=== PATIENT | female | born 1985 | race Caucasian/White ===

== ENCOUNTER 2017-05-15 00:17 | Inpatient (IN) ==
[2017-05-15] MEDS ORDERED: PEPCID PO ONE (00:51)
[2017-05-15] MEDS ORDERED: PEPCID IV PRN (00:51)
[2017-05-15] MEDS ORDERED: ZOFRAN IV PRN (00:51)
[2017-05-15] MEDS ORDERED: REGLAN PO ONE (00:51)
[2017-05-15] MEDS ORDERED: AMBIEN PO PRN ×2 (00:51→16:31)
[2017-05-15] MEDS ORDERED: TYLENOL PO PRN (00:51)
[2017-05-15] MEDS ORDERED: STADOL IV PRN ×2 (00:51)
[2017-05-15] MEDS ORDERED: PEPCID PO PRN (00:51)
[2017-05-15] MEDS ORDERED: BRETHINE SUBQ PRN (00:51)
[2017-05-15] MEDS ORDERED: KEFZOL 1 GM/D5W 1 GM/50 ML IVPB IV PRN (00:51)
[2017-05-15] MEDS ORDERED: LR 1,000 ML IV ONE (00:51)
[2017-05-15] MEDS ORDERED: CYTOTEC PO ONE (02:30)
[2017-05-15 03:05] LABS: MANUAL DIFF NEEDED? NO
[2017-05-15 03:07] LABS: BASO% 0.1 % (0.0-0.8); EOS# 0.04 X1000 (0.0-0.7); EOS% 0.5 % (0.0-10.0); HEMOGLOBIN 11.1 g/dL (12.0-16.0); IMM GRAN# 0.02 X1000 (0.0-0.04); IMM GRAN% 0.3 % (0.0-0.5); LYMPH# 1.56 X1000 (1.2-3.4); LYMPH% 19.5 % (20.5-51.1); MCH 29.8 PG (27-31); MCHC 32.6 g/dL (33-37); MCV 91.2 FL (81-99); MONO# 0.63 X1000 (0.11-0.59); MONO% 7.9 % (1.7-9.3); NEUT% 71.7 % (42.2-75.2); PLT 210 X1000 (130-400); RBC 3.73 XMIL (4.2-5.4)
[2017-05-15] MEDS ORDERED: PITOCIN 30 UNITS/LR 30 UNITS/500 ML IV.SOLN IV SCH (06:30)
[2017-05-15] MEDS ORDERED: MINERAL OIL PO ONE (07:58)
[2017-05-15] MEDS ORDERED: XYLOCAINE-MPF 1% INJ ONE (07:58)
[2017-05-15] MEDS: STADOL IV PRN ×3 (09:45→14:26)
[2017-05-15] MEDS ORDERED: PERI MEDS (DERMOPLAST/NUPERCAINAL/TUCKS) MISC PRN (16:31)
[2017-05-15] MEDS ORDERED: NORCO-5 PO PRN (16:31)
[2017-05-15] MEDS ORDERED: BOOSTRIX VACCINE IM ONE (16:31)
[2017-05-15] MEDS ORDERED: PITOCIN IM PRN (16:31)
[2017-05-15] MEDS ORDERED: MINERAL OIL PO PRN (16:31)
[2017-05-15] MEDS ORDERED: M-M-R II VACCINE SUBQ ONE (16:31)
[2017-05-15] MEDS ORDERED: MOTRIN PO PRN (16:31)
[2017-05-15] MEDS ORDERED: BENADRYL IV PRN (16:31)
[2017-05-15] MEDS ORDERED: CYTOTEC PO PRN (16:31)
[2017-05-15] MEDS ORDERED: HYDROXYZINE IM PRN (16:31)
[2017-05-15] MEDS ORDERED: XYLOCAINE-MPF 1% INJ PRN (16:31)
[2017-05-15] MEDS ORDERED: HYDROXYZINE PO PRN (16:31)
[2017-05-15] MEDS ORDERED: PITOCIN 30 UNITS/LR 30 UNITS/500 ML IV.SOLN IV ONE (16:31)
[2017-05-15] MEDS ORDERED: PITOCIN 20 UNITS/LR 20 UNITS/1,000 ML IV.SOLN IV SCH (16:31)
[2017-05-15] MEDS ORDERED: NORCO-10 PO PRN (16:31)
[2017-05-15] MEDS ORDERED: BENADRYL PO PRN (16:31)
--- NOTE | 2017-05-15 16:58 | OPERATIVE NOTE ---
PROCEDURE DATE: 05/15/2017 PREDELIVERY DIAGNOSES: 1. Intrauterine at term. 2. Elective labor induction. POSTDELIVERY DIAGNOSES: 1. Intrauterine at term. 2. Elective labor induction. 3. Nuchal cord. PHYSICIAN: Dr. Govind Khalil. PROCEDURE: Vaginal delivery. FINDINGS: Viable male infant, 6 pounds 7 ounces. Apgars 9 and 9. Placenta spontaneous, intact. Cord 3 vessels. Primary midline laceration. No repair. All counts correct. ESTIMATED BLOOD LOSS: 100 mL. Please refer to Ms. Gautam' records. She was admitted last night for elective labor induction. Received Cytotec x1 this morning. She was started on Pitocin, artificially ruptured. Required IV pain sedation. Refused epidural. Reached complete cervical dilatation in the afternoon. Began pushing, soon after crowned, at which point the bed was broken down. With continued pushing, the patient delivered a viable male infant, occiput anterior, over a primary midline laceration. Nuchal cord x1 was reduced and 's cord was clamped and cut and care of was taken over by nursery personnel. Cord blood was obtained. Cord was noted to be 3 vessels. Gentle traction on the cord resulted in delivery of an intact placenta after approximately 3 minutes. It was inspected and discarded. Then inspection of the perineum revealed a primary midline laceration that did not require any repair. All counts correct. No clots were noted on exam. Estimated blood loss 100 mL. Expect routine . cc: Govind Khalil MD
[2017-05-15] MEDS: TRANDATE PO SCH (20:58)
[2017-05-15] MEDS: PERICOLACE PO SCH (20:58)
[2017-05-16 04:41] LABS: MANUAL DIFF NEEDED? NO
[2017-05-16 04:55] LABS: BASO% 0.1 % (0.0-0.8); EOS# 0.05 X1000 (0.0-0.7); EOS% 0.5 % (0.0-10.0); HEMATOCRIT 28.6 % (37.0-47.0); IMM GRAN# 0.02 X1000 (0.0-0.04); IMM GRAN% 0.2 % (0.0-0.5); LYMPH# 1.61 X1000 (1.2-3.4); LYMPH% 15.6 % (20.5-51.1); MCH 29.1 PG (27-31); MCHC 31.5 g/dL (33-37); MCV 92.6 FL (81-99); MONO% 8.7 % (1.7-9.3); MPV 10.7 FL (7.4-10.4); NEUT% 74.9 % (42.2-75.2); PLT 180 X1000 (130-400); RBC 3.09 XMIL (4.2-5.4)
[2017-05-16] MEDS: PRECARE PO SCH (10:23)
[2017-05-16] MEDS: TRANDATE PO SCH ×2 (10:23→21:06)
[2017-05-16] MEDS: PERICOLACE PO SCH (21:06)
[2017-05-17 08:12] VITALS: BP 115/82
[2017-05-17] MEDS: TRANDATE PO SCH (08:37)
[2017-05-17] MEDS: PRECARE PO SCH (08:37)
== END 2017-05-17 13:45 | disposition home or self-care (01) ==
LOC: P.LD 00:17 → P.WC 20:05
PROVIDERS: ADMIT Obstetrics & Gynecology; ATTEND Obstetrics & Gynecology